=== PATIENT | female | born 1950 | race Caucasian/White ===

== ENCOUNTER → 2018-07-02 12:07 | Outpatient (CLI) | payer MEDICARE, BC, SELFPAY ==
--- NOTE | 2018-07-02 12:14 | BI_ITS ---
MAMMOGRAPHY - BILATERAL SCREENING REASON FOR EXAM: Female, 67 years old. Routine annual screening examination. PERTINENT HISTORY: Non-contributory. TECHNIQUE: Digital bilateral breast billie (3D mammographic acquisition) in the CC and MLO projections. 2-D mediolateral oblique (MLO) and craniocaudad (CC) views of both breasts were obtained. CAD: Full Field Digital Mammography with Computer Added Detection was performed. COMPARISON: Comparison is made with prior study dated May 06, 2016 and May 07, 2017. FINDINGS: Breast Composition: The breasts are almost entirely fatty. There are no dominant masses or suspicious calcifications. Stable 6 mm nodule in the deep mid outer aspect of the left breast. Stable 8.6 mm nodule in the upper lateral aspect of the right breast. These most likely represent small lymph nodes. No other significant abnormalities are identified. There has been no significant change since the prior study. BI/SCREENING MAMM (CAD), BILAT IMPRESSION: Stable bilateral screening mammogram. Yearly follow-up mammogram recommended. (A) ASSESSMENT CATEGORY: BIRADS Category 2: Benign. A letter regarding these results will be sent to the patient by the facility within 30 days. Approximately 10% of breast cancers are not detected by mammography. A normal mammogram should not delay biopsy of a clinically suspicious abnormality. [id number] Electronically Signed: Bartolo Palomo MD at 8:25 EST Tel [phone], Service support ,
== END ==
PROVIDERS: Family Provider Nurse Practitioner; PCP Nurse Practitioner; Visit Provider Nurse Practitioner
DX: Z12.31 Encounter for screening mammogram for malignant neoplasm of breast (principal)
CPT/HCPCS: 77063; 77067

== ENCOUNTER → 2019-05-04 09:45 | Outpatient (CLI) | payer MEDICARE, BC, SELFPAY ==
--- NOTE | 2019-05-04 09:48 | RAD_ITS ---
STUDY: X-RAY CHEST REASON FOR EXAM: Female, 68 years old. SOB and dyspnea TECHNIQUE: Frontal and lateral views of the chest. COMPARISON: 09/05/2016 FINDINGS: The lungs are clear and expanded. There is no demonstrated pleural abnormality. Normal size heart. Normal mediastinum and jackie. Normal visualized pulmonary arteries. Normal visualized aortic arch and descending thoracic aorta. Normal visualized thoracic spine. Normal visualized ribs, clavicles, and shoulders. There is no demonstrated abnormality of the visualized soft tissue structures of the upper abdomen. RAD/Chest PA and Lateral IMPRESSION: Normal x-ray examination of the chest. Electronically Signed: Rasheed Guy MD at 16:58 EST Tel , Service support ,
[2019-05-04 10:43] LABS: CPK Total, Creatine Kinase 65 U/L (26-192)
[2019-05-04 10:56] LABS: D-Dimer Quantitative (DVT/PE) 0.98 FEU/ug/m (0.27-0.49)
[2019-05-05 11:35] LABS: Myoglobin, Serum 48 ng/mL (25-58)
== END ==
PROVIDERS: Family Provider Nurse Practitioner; PCP Nurse Practitioner; Referring Provider Nurse Practitioner; Visit Provider Nurse Practitioner
DX: R07.89 Other chest pain (principal); R06.02 Shortness of breath
CPT/HCPCS: 71046; 82550; 83874; 84484; 85379

== ENCOUNTER → 2019-05-04 12:00 | Outpatient (CLI) | payer MEDICARE, BC, SELFPAY ==
--- NOTE | 2019-05-04 12:24 | CT_ITS ---
STUDY: CTA CHEST REASON FOR EXAM: Female, 68 years old. Elevated d-dimer. Shortness of breath and chest pressure. RADIATION DOSAGE (If Supplied By Facility): CTDIvol = ( 12.57 ) mGy, DLP = ( 543.04 ) mGycm TECHNIQUE: The examination was performed with the intravenous administration of IV 75mL Isovue-370 75. Post-processing of the angiographic images was performed, with multiplanar reformation and 3D reconstruction. Individualized dose optimization techniques were used for this CT. COMPARISON: Comparison is made with prior study dated July 26, 2015. FINDINGS: Normal enhancement of the main pulmonary artery and right and left pulmonary arteries. Normal enhancement of the bilateral peripheral pulmonary arteries. There is no demonstrated pulmonary embolism. Normal thoracic aorta and visualized great vessels. There is no demonstrated aortic dissection. Normal heart and pericardium. Normal mediastinum. Normal hilar regions. Normal visualized trachea and bronchi. The lungs are well expanded. Normal pulmonary parenchyma. Normal pleura. Normal chest wall structures. There are degenerative changes of thoracic spine. Multiple cysts seen in the upper aspect of the left kidney. Small hiatal hernia. CT/CTA Chest W/WO Contrast IMPRESSION: Normal CTA chest examination, without a demonstrated pulmonary embolism or arterial dissection. Electronically Signed: Bartolo Palomo, at 13:22 EST , Service support ,
[2019-05-04 13:20] LABS: CREATININE FINGERSTICK 0.9 mg/dL (0.55-1.02)
== END ==
PROVIDERS: Family Provider Nurse Practitioner; PCP Nurse Practitioner; Referring Provider Nurse Practitioner; Visit Provider Nurse Practitioner
DX: R79.89 Other specified abnormal findings of blood chemistry (principal); R07.89 Other chest pain; R06.02 Shortness of breath
CPT/HCPCS: 71046; 71275; 82550; 83874; 84484; 85379; Q9967

== ENCOUNTER → 2019-05-11 09:00 | Outpatient (CLI) | payer MEDICARE, BC, SELFPAY ==
--- NOTE | 2019-05-11 09:04 | BD_ITS ---
STUDY: DUAL ENERGY X-RAY ABSORPTIOMETRY / DXA REASON FOR EXAM: Female, 68 years old. The patient is postmenopausal. Loss of height. TECHNIQUE: Bone Mineral Density (BMD) measurements of lumbar spine and bilateral hips were obtained. COMPARISON: Comparison is made with prior examination dated May 07, 2017. FINDINGS: Lumbar Spine (L1-L4): g/cm2 (1.460) / T-score (2.2) / Z-score (3.8) Findings are suggestive of normal bone density with a low fracture risk. Left Femur Total: g/cm2 (0.894) / T-score (-0.9) / Z-score (0.6) Left Femoral Neck: g/cm2 (0.790) / T-score (-1.8) / Z-score (-0.1) Right Femur Total: g/cm2 (0.850) / T-score (-1.2) / Z-score (0.3) Right Femoral Neck: g/cm2 (0.810) / T-score (-1.6) / Z-score (0.1) The T-Scores on the most recent prior examination were: Lumbar Spine (L1-L4): There has been improvement of bone density since the previous examination. Left Femur Total: which represents an improvement of 4.6%. Right Femur Total: which represents a worsening of 0.5%. BD/Dexa Bone Density Study IMPRESSION: The patient is considered osteopenic as outlined below according to World Mario Organization (WHO) criteria with a moderate fracture risk. There has been improvement of bone density since the previous examination. Reference Information: The T-score is the number of standard deviations above or below the standard which is normal for young adults at their peak bone mineral density. The World Health Organization (WHO) interprets the T-scores as follows: Above -1 Normal bone density Between -1 and -2.5 Osteopenia Equal to / or below -2.5 Osteoporosis As a practical clinical guideline, osteopenia may be graded as follows: Mild -1 through -1.5 Moderate -1.6 through -2.0 Severe -2.1 through -2.4 The Z-score is the number of standard deviations above or below age-matched controls. A Z-score of less than -1.5 would be considered abnormal. References: 1. NIH Osteoporosis and Related Bone Diseases http://www.osteo.org 2. International Society for Clinical Densitometry http://www.iscd.org 3. National Osteoporosis Foundation http://www.nof.org Electronically Signed: Bartolo Palomo, at 15:44 EST , Service support ,
== END ==
PROVIDERS: Family Provider Nurse Practitioner; PCP Nurse Practitioner; Referring Provider Nurse Practitioner; Visit Provider Nurse Practitioner
DX: Z78.0 Asymptomatic menopausal state (principal); M85.80 Other specified disorders of bone density and structure, unspecified site
CPT/HCPCS: 77080

== ENCOUNTER → 2019-08-01 11:55 | Outpatient (CLI) | payer MEDICARE, BC, SELFPAY ==
--- NOTE | 2019-08-01 12:03 | BI_ITS ---
MAMMOGRAPHY - BILATERAL SCREENING REASON FOR EXAM: Female, 69 years old. Routine annual screening examination. PERTINENT HISTORY: Non-contributory. TECHNIQUE: Digital bilateral breast erica (3D mammographic acquisition) in the CC and MLO projections. 2-D mediolateral oblique (MLO) and craniocaudad (CC) views of both breasts were obtained. CAD: Full Field Digital Mammography with Computer Added Detection was performed. COMPARISON: Comparison is made with prior study dated July 02, 2018 and May 07, 2017. FINDINGS: Breast Composition: There are scattered areas of fibroglandular density. There are no dominant masses or suspicious calcifications. Stable 6 mm nodular density in the deep lateral aspect of the left breast. This has a the appearance of a small lymph node. A similar appearing 8.6 mm nodule in the upper lateral aspect of the right breast is seen as well. No other significant abnormalities are identified. There has been no significant change since the prior study. BI/SCREEN MAMM (CAD) W/ERICA BILAT IMPRESSION: Stable bilateral screening mammogram. Yearly follow-up mammogram recommended. (A) ASSESSMENT CATEGORY: BIRADS Category 2: Benign. A letter regarding these results will be sent to the patient by the facility within 30 days. Approximately 10% of breast cancers are not detected by mammography. A normal mammogram should not delay biopsy of a clinically suspicious abnormality. [id number] Electronically Signed: Bartolo Palomo, at 13:44 EST , Service support ,
== END ==
PROVIDERS: Family Provider Nurse Practitioner; PCP Nurse Practitioner; Referring Provider Nurse Practitioner; Visit Provider Nurse Practitioner
DX: Z12.31 Encounter for screening mammogram for malignant neoplasm of breast (principal)
CPT/HCPCS: 77063; 77067

== ENCOUNTER → 2020-03-14 06:15 | Outpatient (CLI) | payer MEDICARE, BC, SELFPAY ==
--- NOTE | 2020-03-14 06:18 | ECHOD_ITS ---
Reason For Study: SOB Procedure This was a 2D Doppler, Color Flow transthoracic echocardiogram. The exam was of adequate technical quality. Exam performed in department. Left Ventricle Normal LV size. Left ventricular systolic function is normal. The estimated ejection fraction is 65 %. Diastolic function is indeterminate. No regional wall motion abnormalities noted. Right Ventricle Normal RV size. Normal systolic function. Atria The left atrium is mildly enlarged. Normal right atrium. No doppler evidence for ASD. Mitral Valve There is mild mitral annular calcification. Mild diffuse mitral valve thickening. Trivial mitral valve insufficiency. Tricuspid Valve Normal tricuspid valve. Trivial tricuspid valve insufficiency. Right ventricular systolic pressure estimated to be 36 mmHg. Aortic Valve Trisinus/trileaflet aortic valve. Normal aortic valve. Pulmonic Valve The pulmonic valve is not well visualized. Great Vessels Normal sized aortic root. Pericardium/Pleural No pericardial effusion. MMode/2D Measurements & Calculations LVIDd: 4.6 cm IVSd: 1.0 cm Ao root diam: 3.3 cm LVIDs: 3.0 cm LVPWd: 0.98 cm RVDd: 3.4 cm FS: 35.0 % LAV(MOD-bp): 54.2 ml LVAd ap4: 30.8 cm2 SV(MOD-sp4): 63.2 ml LAV(MOD-bp) Indexed: 26.2 ml/m2 EDV(MOD-sp4): 98.1 ml LAV(MOD-sp2): 51.5 ml EDV(sp4-el): 101.2 ml LAV(MOD-sp4): 56.6 ml LVAs ap4: 16.7 cm2 ESV(MOD-sp4): 34.9 ml ESV(sp4-el): 35.3 ml EF(MOD-sp4): 64.4 % EF(sp4-el): 65.1 % SV(sp4-el): 65.9 ml LA A4 area: 18.9 cm2 LA dimension(2D): 4.0 cm RA A4 area: 14.2 cm2 Doppler Measurements & Calculations MV E max pako: 68.6 cm/sec Lat Peak E' Pako: 11.0 cm/sec Med Peak E' Pako: 6.1 cm/sec MV A max pako: 78.8 cm/sec E/E' lat: 6.2 E/E' med: 11.2 MV E/A: 0.87 Ao V2 max: 133.2 cm/sec LV V1 max: 105.1 cm/sec PA V2 max: 105.7 cm/sec Ao max P.1 mmHg LV V1 max P.4 mmHg TR max pako: 288.2 cm/sec TR max P.2 mmHg Interpretation Summary Left ventricular systolic function is normal. The estimated ejection fraction is 65 %. The left atrium is mildly enlarged. There is mild mitral annular calcification. Mild diffuse mitral valve thickening. Trivial mitral valve insufficiency. Trivial tricuspid valve insufficiency. Right ventricular systolic pressure estimated to be 36 mmHg. Diastolic function is indeterminate. Ordering Physician: Neris Tian Referring Physician: Neris Tian Performed By: Yomaira Garcia RDCS
--- NOTE | 2020-03-14 07:51 | STRESSREP ---
Stress Test Report Date: 03-14-2020 Procedure: Pharmacologic stress nuclear imaging study Indications: Shortness of breath/dyspnea on exertion Consent: Per the patient Procedure: The patient underwent pharmacologic (Regadenoson) evaluation with a peak heart rate of 79 beats per minute (53%predicted maximal heart rate) and a peak blood pressure of 126/74 mmHg. The baseline ECG demonstrated normal sinus rhythm. The peak pharmacologic ECG demonstrated no obvious ECG changes. There were no cardiac dysrhythmias pretest, during pharmacologic infusion, or recovery. There was no complaint of chest discomfort during pharmacologic infusion or recovery. The examination was discontinued secondary to completion of protocol. Impression: 1. Pharmacologic (Regadenoson) evaluation 2. Peak pharmacologic ECG with no obvious ECG changes. 3. There were no cardiac dysrhythmias pretest, during pharmacologic infusion, or recovery. 4. Nuclear images pending Myocardial perfusion imaging study: Technique: The patient was injected with 14.7 millicuries of technetium 99m Cardiolite and subsequently rest SPECT Cardiolite nuclear imaging was obtained in the horizontal long, vertical long, and short axis views. The patient underwent pharmacologic (Regadenoson) evaluation with a peak heart rate of 79 beats per minute (53% percent predicted maximal heart rate) and a peak blood pressure of 126/74 mmHg. The patient was injected with 44.8 millicuries of technetium 99m Cardiolite and subsequently stress SPECT Cardiolite nuclear imaging was obtained in the horizontal long, vertical long, and short axis views. A gated Cardiolite study at peak stress was obtained. Interpretation: Rest and stress SPECT Cardiolite nuclear imaging status post realignment, normalization, and attenuation correction demonstrate relative uniform tracer uptake and myocardial perfusion appearing within normal limits. There is end systolic thickening and brightening. The gated Cardiolite study demonstrates myocardial thickening and inward wall motion. The reported LVEF is 67 %. Impression: 1. Rest and stress SPECT Cardiolite nuclear imaging demonstrate relative uniform tracer uptake and myocardial perfusion appearing within normal limits. 2. The gated Cardiolite study reports an LVEF of 67 %. This note was generated with [employer] software. It may contain incorrect words, spelling, and punctuation that were not noted in checking the note before signing.
== END ==
PROVIDERS: PCP Nurse Practitioner; Referring Provider Nurse Practitioner; Visit Provider Nurse Practitioner
DX: R06.02 Shortness of breath (principal)
CPT/HCPCS: 78452; 93017; 93306; A9500; A4216; J2785

== ENCOUNTER → 2020-08-06 10:51 | Outpatient (CLI) | payer MEDICARE, BC, SELFPAY ==
--- NOTE | 2020-08-06 10:54 | BI_ITS ---
MAMMOGRAPHY - BILATERAL SCREENING REASON FOR EXAM: Female, 70 years old. Routine annual screening examination. PERTINENT HISTORY: Non-contributory. TECHNIQUE: Digital bilateral breast erica (3D mammographic acquisition) in the CC and MLO projections. 2-D mediolateral oblique (MLO) and craniocaudad (CC) views of both breasts were obtained. CAD: Full Field Digital Mammography with Computer Added Detection was performed. COMPARISON: Comparison is made with prior study dated 08/01/2019 and 07/02/2018. FINDINGS: Breast Composition: There are scattered areas of fibroglandular density. There are no dominant masses or suspicious calcifications. Stable 6 mm well-defined nodule in the deep lateral aspect of the left breast. Stable 8.6 mm well-defined nodule in the upper lateral aspect of the right breast. These most likely represent small lymph nodes. No other significant abnormalities are identified. There has been no significant change since the prior study. BI/SCRN MAMM (CAD)W/ERICA BILAT IMPRESSION: Stable bilateral screening mammogram. Yearly follow-up mammogram recommended. (A) ASSESSMENT CATEGORY: BIRADS Category 2: Benign. A letter regarding these results will be sent to the patient by the facility within 30 days. Approximately 10% of breast cancers are not detected by mammography. A normal mammogram should not delay biopsy of a clinically suspicious abnormality. [id number] Electronically Signed: Bartolo Palomo MD at 12:01 EST , Service support ,
== END ==
PROVIDERS: PCP Nurse Practitioner; Referring Provider Nurse Practitioner; Visit Provider Nurse Practitioner
DX: Z12.31 Encounter for screening mammogram for malignant neoplasm of breast (principal)
CPT/HCPCS: 77063; 77067

== ENCOUNTER 2021-08-07 10:18 | Outpatient (CLI) | payer MEDICARE, BC, SELFPAY ==
--- NOTE | 2021-08-07 10:22 | BI_ITS ---
MAMMOGRAPHY - BILATERAL SCREENING REASON FOR EXAM: Female, 71 years old. Routine annual screening examination. PERTINENT HISTORY: Non-contributory. TECHNIQUE: Digital bilateral breast erica (3D mammographic acquisition) in the CC and MLO projections. 2-D mediolateral oblique (MLO) and craniocaudad (CC) views of both breasts were obtained. CAD: Full Field Digital Mammography with Computer Added Detection was performed. COMPARISON: Comparison is made with prior study dated 08/06/2020 and 08/01/2019. FINDINGS: Breast Composition: The breasts are almost entirely fatty. There are no dominant masses or suspicious calcifications. Stable 6 mm well-defined nodule in the deep lateral aspect of the left breast. Stable 8.6 mm well-defined nodule in the upper lateral aspect of the right breast. These most likely represent small lymph nodes. Prior sonogram demonstrated these to be small benign appearing lymph nodes. No other significant abnormalities are identified. There has been no significant change since the prior study. BI/SCRN MAMM (CAD)W/ERICA BILAT IMPRESSION: Stable bilateral screening mammogram. Yearly follow-up mammogram recommended. (A) ASSESSMENT CATEGORY: BIRADS Category 2: Benign. A letter regarding these results will be sent to the patient by the facility within 30 days. Approximately 10% of breast cancers are not detected by mammography. A normal mammogram should not delay biopsy of a clinically suspicious abnormality. [id number] Electronically Signed: Bartolo Palomo MD at 11:03 EST ,
== END 2021-08-07 23:59 | disposition home or self-care (01) ==
LOC: OPBI 10:19
PROVIDERS: PCP Nurse Practitioner; Referring Provider Nurse Practitioner; Visit Provider Nurse Practitioner
DX: Z12.31 Encounter for screening mammogram for malignant neoplasm of breast (principal)
CPT/HCPCS: 77063; 77067

== ENCOUNTER → 2022-08-06 | Outpatient (CLI) | payer MEDICARE, BC, SELFPAY ==
--- NOTE | 2022-08-06 12:11 | CT_ITS ---
STUDY: CT BRAIN WITH AND WITHOUT CONTRAST REASON FOR EXAM: Female, 72 years old. Having dizziness along with headache, NEED TO BE STAT -- having dizziness along with headache, NEED TO BE STAT RADIATION DOSAGE (If Supplied By Facility): CTDIvol = ( 44.99 ) mGy, DLP = ( 1614.72 ) mGycm TECHNIQUE: Transaxial CT imaging of the brain was performed pre and post contrast administration. The examination was performed with intravenous administration of IV 50mL Isovue-370. Individualized dose optimization techniques were used for this CT. COMPARISON: None. FINDINGS: Normal soft tissue structures. Normal calvarium. There is mild cerebral atrophy with widening of the extra-axial spaces and ventricular dilatation. Normal white matter tracts of the cerebral hemispheres. Normal basal ganglia and thalami. Normal brainstem. Normal cerebellum. There is no intracranial hemorrhage. There are no findings of an acute ischemic infarction. There is evidence of pansinusitis. Increased soft tissue density in the left nasal fossa suggestive of nasal polyposis. CT/Brain/Head W/WO Contrast IMPRESSION: Pansinusitis with prominence of the soft tissues in the left nasal fossa suggestive of a polyposis. Electronically Signed: Bartolo Palomo MD at 12:56 EST ,
[2022-08-06 17:10] LABS: CREATININE FINGERSTICK < 0.9 mg/dL (0.55-1.02); EGFR FINGERSTICK > 60.0000 mL/min (>60)
== END | disposition home or self-care (01) ==
LOC: CT 12:09
PROVIDERS: PCP Nurse Practitioner; Visit Provider Internal Medicine
DX: R42 Dizziness and giddiness (principal)
CPT/HCPCS: 70470; Q9967

== ENCOUNTER → 2022-08-28 | Outpatient (CLI) | payer MEDICARE, BC, SELFPAY ==
--- NOTE | 2022-08-28 13:00 | BI_ITS ---
MAMMOGRAPHY - BILATERAL SCREENING REASON FOR EXAM: Female, 72 years old. Routine annual screening examination. PERTINENT HISTORY: Non-contributory. TECHNIQUE: Digital bilateral breast billie (3D mammographic acquisition) in the CC and MLO projections. 2-D mediolateral oblique (MLO) and craniocaudad (CC) views of both breasts were obtained. CAD: Full Field Digital Mammography with Computer Added Detection was performed. COMPARISON: Comparison is made with prior study of August 07, 2021 and 08/06/2020. FINDINGS: Breast Composition: The breasts are almost entirely fatty. There are no dominant masses or suspicious calcifications. Stable 6 mm well-defined nodule in the lateral aspect of the left breast. Stable 8.6 mm well-defined nodule in the upper lateral aspect of the right breast. These have a fatty hilum and is suggestive of bilateral benign-appearing lymph nodes. No other significant abnormalities are identified. There has been no significant change since the prior study. BI/SCREENING MAMM (CAD), BILAT IMPRESSION: Stable bilateral screening mammogram. Yearly follow-up mammogram recommended. (A) ASSESSMENT CATEGORY: BIRADS Category 2: Benign. A letter regarding these results will be sent to the patient by the facility within 30 days. Approximately 10% of breast cancers are not detected by mammography. A normal mammogram should not delay biopsy of a clinically suspicious abnormality. [id number] Electronically Signed: Bartolo Palomo MD at 13:54 EST ,
--- NOTE | 2022-08-28 13:26 | BD_ITS ---
STUDY: DUAL ENERGY X-RAY ABSORPTIOMETRY / DXA REASON FOR EXAM: Female, 72 years old. M85.89 TECHNIQUE: Bone Mineral Density (BMD) measurements of lumbar spine and bilateral hips were obtained. COMPARISON: Comparison is made with prior study May 11, 2019. FINDINGS: Lumbar Spine (L1-L4): g/cm2 (1.339) / T-score (2.6) / Z-score (5.0) Findings are suggestive of normal bone density with a low fracture risk. Left Femur Total: g/cm2 (0.825) / T-score (-1.0) / Z-score (0.8) Left Femoral Neck: g/cm2 (0.653) / T-score (-1.8) / Z-score (0.3) Right Femur Total: g/cm2 (0.880) / T-score (-0.5) / Z-score (1.2) Right Femoral Neck: g/cm2 (0.692) / T-score (-1.4) / Z-score (0.6) The T-Scores on the most recent prior examination were: Lumbar Spine (L1-L4): There has been improvement of bone density since the previous examination. Left Femur Total: which represents a worsening of 0.8%. Right Femur Total: which represents an improvement of 11.6%. BD/Dexa Bone Density Study IMPRESSION: The patient is considered osteopenic as outlined below according to World Mario Organization (WHO) criteria with a moderate fracture risk. There has been improvement of bone density since the previous examination. Reference Information: The T-score is the number of standard deviations above or below the standard which is normal for young adults at their peak bone mineral density. The World Health Organization (WHO) interprets the T-scores as follows: Above -1 Normal bone density Between -1 and -2.5 Osteopenia Equal to / or below -2.5 Osteoporosis As a practical clinical guideline, osteopenia may be graded as follows: Mild -1 through -1.5 Moderate -1.6 through -2.0 Severe -2.1 through -2.4 The Z-score is the number of standard deviations above or below age-matched controls. A Z-score of less than -1.5 would be considered abnormal. References: 1. NIH Osteoporosis and Related Bone Diseases www osteo.org 2. International Society for Clinical Densitometry www iscd.org 3. National Osteoporosis Foundation www nof.org Electronically Signed: Bartolo Palomo MD at 13:39 EST ,
== END | disposition home or self-care (01) ==
LOC: OPBI 12:57
PROVIDERS: PCP Nurse Practitioner; Visit Provider Nurse Practitioner Family
DX: Z12.31 Encounter for screening mammogram for malignant neoplasm of breast (principal); Z78.0 Asymptomatic menopausal state
CPT/HCPCS: 77067; 77080

== ENCOUNTER → 2022-11-06 | Outpatient (CLI) | payer MEDICARE, BC, SELFPAY | END | disposition home or self-care (01) | LOC: PSN 10:49 | PROVIDERS: PCP Nurse Practitioner Family; Referring Provider Nurse Practitioner Family; Visit Provider Nurse Practitioner Family | DX: R00.2 Palpitations (principal) | CPT/HCPCS: 93225; 93226 ==

== ENCOUNTER → 2023-09-04 | Outpatient (CLI) | payer MEDICARE, BC, SELFPAY ==
--- NOTE | 2023-09-04 14:43 | BI_ITS ---
MAMMOGRAPHY - BILATERAL SCREENING REASON FOR EXAM: Female, 73 years old. Routine annual screening examination. PERTINENT HISTORY: Non-contributory. TECHNIQUE: Digital bilateral breast erica (3D mammographic acquisition) in the CC and MLO projections. 2-D mediolateral oblique (MLO) and craniocaudad (CC) views of both breasts were obtained. CAD: Full Field Digital Mammography with Computer Added Detection was performed. COMPARISON: Comparison is made with prior study dated August 28, 2022 and August 07, 2021. FINDINGS: Breast Composition: The breasts are almost entirely fatty. There are no dominant masses or suspicious calcifications. Stable 6 mm well-defined nodule in the lateral aspect of the left breast. Stable 8.6 mm well-defined nodule in the upper outer aspect of the right breast. These most likely represent bilateral intramammary lymph nodes. No other significant abnormalities are identified. There has been no significant change since the prior study. BI/SCRN MAMM (CAD)W/ERICA BILAT IMPRESSION: Stable bilateral screening mammogram. Yearly follow-up mammogram recommended. (A) ASSESSMENT CATEGORY: BIRADS Category 2: Benign. A letter regarding these results will be sent to the patient by the facility within 30 days. Approximately 10% of breast cancers are not detected by mammography. A normal mammogram should not delay biopsy of a clinically suspicious abnormality. [id number] Electronically Signed: Bartolo Palomo MD at 15:27 EDT ,
== END | disposition home or self-care (01) ==
PROVIDERS: PCP Nurse Practitioner Family; Referring Provider Nurse Practitioner Family; Visit Provider Nurse Practitioner Family
DX: Z12.31 Encounter for screening mammogram for malignant neoplasm of breast (principal)
CPT/HCPCS: 77063; 77067

== ENCOUNTER 2024-04-15 14:57 | Outpatient (CLI) | payer MEDICARE, BC, SELFPAY ==
[2024-04-15 15:20] LABS: Anion Gap 9 (5-15); BUN 39 mg/dL (7-18); BUN/Creat Ratio 34.2 RATIO (10-20); Calcium,Total 9.8 mg/dL (8.5-10.1); Chloride 99 mmol/L (98-107); Creatinine, Serum 1.14 mg/dL (0.55-1.02); EST Glomerular Filtration Rate 49 mL/min (>60); Est Glom Filt Rate - Afr Amer 60 mL/min (>60); Glucose 144 mg/dL (74-106); Potassium 3.9 mmol/L (3.5-5.1); Sodium Level 138 mmol/L (136-145)
[2024-04-15 15:33] LABS: BNP,B-Type NATRIURETIC PEPTIDE 68.7 pg/mL (0-100)
== END 2024-04-15 23:59 | disposition home or self-care (01) ==
LOC: LABSPEC 14:59
PROVIDERS: PCP Nurse Practitioner Family; Referring Provider Nurse Practitioner Family; Visit Provider Nurse Practitioner Family
DX: R60.0 Localized edema (principal)
CPT/HCPCS: 80048; 83880

== ENCOUNTER → 2024-09-07 | Outpatient (CLI) | payer MEDICARE, BC, SELFPAY ==
--- NOTE | 2024-09-07 12:34 | BD_ITS ---
PROCEDURE: DEXA BONE DENSITY STUDY REASON FOR EXAM: None provided TECHNIQUE: DEXA scan of the lumbar spine and hips, using a Hologic Horizon W unit. REFERENCE LINKS: ISCD Adult Positions COMPARISON: 08/28/2022 FINDINGS: LUMBAR SPINE: Bone mineral denisty, L1 and L3-L4: 1.289 g/cm???, potentially elevated by hypertrophic bony degenerative changes. T-score: 2.1 LEFT FEMORAL NECK: Bone mineral denisty: 0.624 g/cm??? T-score: -2.0 LEFT TOTAL HIP: Bone mineral denisty: 0.860 g/cm??? T-score: -0.7 RIGHT FEMORAL NECK: Bone mineral denisty: 0.728 g/cm??? T-score: -1.1 RIGHT TOTAL HIP: Bone mineral denisty: 0.882 g/cm??? T-score: -0.5 FRAX*: 10 Year Probability of Fracture: Major Osteoporotic Fracture(1): 16.0% Hip Fracture(2): 4.2% *FRAX is a trademark of the [employer]'s [place] for Metabolic Bone Disease, World Health Organization (WHO) Collaborating [place]. 1-Major Osteoporotic Fracture: Clinical Spine, Forearm, Hip or Shoulder. 2-The 10-year probability of fracture may be lower than reported if the patient has received treatment. BD/Dexa Bone Density Study IMPRESSION: 1. Osteopenia. 2. Since 08/28/2022, there has been a decrease of 3.8% in the bone mineral dens ity of the lumbar spine. 3. Additional description as above. Reading Location: [id number]
--- NOTE | 2024-09-07 13:00 | BI_ITS ---
EXAM: SCRN MAMM (CAD)W/ERICA BILAT DATE: 09/07/2024 CLINICAL HISTORY: F, Age 74 y/o , SCRN MAMM (CAD)W/ERICA BILAT. No family history. History of prior left breast needle biopsy. BREAST CANCER RISK ASSESSMENT: Not assessed. TECHNIQUE: Bilateral screening digital breast tomosynthesis with 2D and 3D images. Computer aided detection. COMPARISON: Prior exam(s) dating back to September 04, 2023.. FINDINGS: Bilateral Breast Mammographic Findings: No significant masses, calcifications or other abnormalities are identified. TISSUE DENSITY: The breast tissue is almost entirely fatty. Stable 6 mm well-defined nodule in the upper lateral aspect of the left breast as well as stable 8.6 mm fat containing nodule in the upper lateral aspect of the right breast. These most likely represent small intramammary lymph nodes. BI/SCRN MAMM (CAD)W/ERICA BILAT IMPRESSION: Right Breast: BIRADS 2 BENIGN FINDING. Left Breast: BIRADS 2 BENIGN FINDING. OVERALL FINAL ASSESSMENT: BIRADS 2 BENIGN FINDING RECOMMENDATION: ROUTINE ANNUAL FOLLOW-UP Bilateral in 1 Year Normal interval followup mammograms are recommended in 12 months. A letter with findings and recommendations will be mailed to the patient. Reading Location: [place] [id number]
== END | disposition home or self-care (01) ==
LOC: OPBD 12:30
PROVIDERS: PCP Nurse Practitioner Family; Referring Provider Nurse Practitioner Family; Visit Provider Nurse Practitioner Family
DX: Z12.31 Encounter for screening mammogram for malignant neoplasm of breast (principal); Z78.0 Asymptomatic menopausal state
CPT/HCPCS: 77063; 77067; 77080

== ENCOUNTER 2024-12-22 05:09 | Emergency (ER) | payer MEDICARE, BC, SELFPAY ==
[2024-12-22 05:09] VITALS: BP 133/72; PULSE 66; RESP 18; TEMP 36.8; O2SAT 99; BMI 47.1
--- NOTE | 2024-12-22 05:17 | EKG12_ITS ---
Test Reason : DYSRHYTHMIA Blood Pressure : */* mmHG Vent. Rate : 66 BPM Atrial Rate : 66 BPM P-R Int : 188 ms QRS Dur : 94 ms QT Int : 408 ms P-R-T Axes : 28 72 86 degrees QTcB Int : 427 ms Normal sinus rhythm with sinus arrhythmia Nonspecific ST and T wave abnormality Abnormal ECG Confirmed by SADI ALLISON, LUIS DANIEL ([id number]), managing editor SHAUN PATEL ([id number]) on 12/26/2024 10:28:38 AM Referred By: Confirmed By: LUIS DANIEL AVITIA MD
[2024-12-22] MEDS: 0.9% Normal Saline (1000mL) 1,000 ML 1000 ML IV (05:29)
--- NOTE | 2024-12-22 05:29 | EX.ED.DYSGE1 ---
HPI History of Present Illness Chief Complaint: General Illness Narrative Narrative: hief complaint and HPI: General Malaise. 74-year-old female with past medical history of DM2, gout, HTN, vertigo presents for evaluation of general malaise. Patient states that she recently developed a gout flare in her right toe. She is currently on high-dose steroids. States she started that on Thursday evening. Patient states yesterday morning she felt nauseous but that this quickly resolved. States that she again developed nausea in the evening. She states she is taking her steroids twice daily. She states this morning she woke up feeling warm, nauseous, and lightheaded. She denies any fever, chills, URI symptoms, cough, chest pain, shortness of breath, abdominal pain, dysuria, hematuria, diarrhea, constipation. Patient states she is concerned that her symptoms are secondary to the steroids. Review of systems: See HPI Medications: As listed on the chart Allergies: As listed on the chart PFSH: Per chart Vital signs: As listed on the chart. Reviewed. Physical exam: Gen: A&O x3, NAD Head: Normocephalic, atraumatic Eyes: No sclera icterus, conjunctiva clear, PERRL ENT: Moist mucous membranes Neck: Trachea midline, No JVD CV: RRR, no murmurs, no peripheral edema Resp: Lungs CTA BL, no w/r/c GI: Abd soft, non-distended, non-tender, no r/r/g Musc: Full ROM, no deformity, right toe with gout tophi Skin: Warm, dry Neuro: Alert, oriented, grossly intact, sensation intact Psych: Cooperative, appropriate mood and affect [facility] Home Medications ?Medication ?Instructions ?Recorded ?Last Taken ?Type amlodipine 10 mg-benazepril 20 mg 1 ea PO DAILY 07/10/15 09/05/16 History capsule gabapentin 300 mg capsule 300 mg PO QHS 07/10/15 09/04/16 History hydrochlorothiazide 25 mg tablet 25 mg PO DAILY 07/10/15 09/05/16 History metformin 850 mg tablet 850 mg PO DAILY 07/10/15 09/05/16 History nadolol 80 mg tablet (Corgard) 120 mg PO DAILY 07/10/15 09/05/16 History calcium carbonate 500 mg PO DAILY 04/01/16 09/05/16 History cholecalciferol (vitamin D3) 25 2,000 unit PO DAILY 04/01/16 09/05/16 History mcg (1,000 unit) tablet (Vitamin D3) aspirin 81 mg chewable tablet 81 mg PO DAILY 09/05/16 09/05/16 History oxycodone-acetaminophen 5 mg-325 1 tab PO Q4H PRN PRN Pain #20 tabs 09/05/16 Unknown Rx mg tablet allopurinol 100 mg tablet 100 mg PO DAILY 12/22/24 Unknown History ondansetron 4 mg disintegrating 4 mg PO Q8H PRN PRN Nausea #10 tabs 12/22/24 Unknown Rx tablet prednisone 20 mg tablet mg PO 12/22/24 Unknown History tirzepatide 5 mg/0.5 mL 5 mg subcut QWEEK 12/22/24 Unknown History subcutaneous pen injector (Mounjaro) Allergy/AdvReac Type Severity Reaction Status Date / Time ciprofloxacin (From Cipro) Allergy KIDNEY Verified 09/05/16 16:53 FAILURE ciprofloxacin HCl (From Allergy KIDNEY Verified 09/05/16 16:53 Cipro) FAILURE meloxicam (From Mobic) Allergy KIDNEY Verified 09/05/16 16:53 FAILURE hydrocodone AdvReac MURO, sick Verified 09/05/16 16:53 to stomach Social History Smoking Status: Never smoker EXAM Physical Exam Const Vital Signs: 12/22/24 05:09 12/22/24 05:09 Temperature 98.2 F Temperature Source Oral Pulse Rate 66 Respiratory Rate 18 Respiratory Effort Normal Non-Labored Respiratory Pattern Normal Blood Pressure 133/72 H Blood Pressure Mean 92 Pulse Ox 99 Oxygen Delivery Method Room Air MDM MDM MDM Narrative Medical decision making narrative: 74-year-old female with past medical history of DM2, gout, HTN, vertigo presents for evaluation of general malaise. Patient states that she recently developed a gout flare in her right toe. She is currently on high-dose steroids. States she has been having intermittent nausea since yesterday morning. This morning woke up with nausea, lightheadedness, feeling warm. See physical exam findings. Vital stable other than mild hypertension. Differential diagnosis includes but is not limited to medication adverse side effect from steroids, electrolyte abnormality, UTI, anemia, arrhythmia, viral illness, suspect less likely ACS or intra-abdominal pathology. NS bolus and Zofran ordered. Laboratory workup ordered including chest x-ray. EKG and chest x-ray reviewed see below. Chest x-ray without pneumonia, effusion, cardiomegaly, pneumothorax. Radiology in agreement. CBC without leukocytosis or anemia. Platelets unremarkable. CMP without electrolyte abnormality or MANUELA. Patient has mild transaminitis with an AST of 55 and an ALT of 79. Patient not endorsing any right upper quadrant abdominal pain. Her abdomen is nontender on physical exam. Previous labs are from 2016 which showed normal enzymes at that time. Unknown if this is chronic. Patient states that she does not know if she has baseline elevated liver enzymes. Lipase unremarkable. Troponin unremarkable. Patient not having any chest pain therefore I do not think delta troponin is needed. UA is negative for UTI. At this point in time, no clear etiology for patient's symptoms although I suspect it may be secondary to her recent steroid use. On reevaluation, patient's nausea has improved. She was updated of all the results and confirmed understanding. Plan is to discharge home. Will prescribe Zofran as needed for nausea. Patient was educated that she needs to follow-up with her primary care physician. She was educated to call the office this morning to assess if she should continue the steroids. She was also told to follow-up for her mild transaminitis. She confirmed understanding. Return precautions explained. Patient stable to discharge home. EKG: Interpreted by me/EM physician: EKG shows sinus arrhythmia. There is multiple artifacts on the EKG causing nonspecific changes. Will repeat EKG in hopes of less artifact. EKG shows sinus arrhythmia. Again with artifact however improved. Diagnostic: Interpreted by me/EM physician: Chest x-ray without pneumonia, effusion, cardiomegaly, pneumothorax. Radiology in agreement. Impression: 1. General Malaise 2. Nausea 3. Possible adverse effect from medication 4. Transaminitis, needs further workup outpatient Lab Data Labs: Laboratory Results - last 24 hr 12/22/24 12/22/24 04:55 05:32 WBC 8.1 RBC 4.57 Hgb 13.8 Hct 41.0 MCV 89.7 MCH 30.2 MCHC 33.7 RDW Std Deviation 42.9 RDW Coeff of Jia 13.2 Plt Count 254 MPV 9.6 Immature Gran % (Auto) 0.500 Neut % (Auto) 76.0 H Lymph % (Auto) 19.2 [place] % (Auto) 4.1 Eos % (Auto) 0.0 Baso % (Auto) 0.2 Absolute Neuts (auto) 6.2 Absolute Lymphs (auto) 1.55 Nucleated RBC % 0 Sodium 136 Potassium 4.1 Chloride 99 Carbon Dioxide 21.9 Anion Gap 15 BUN 26 H Creatinine 0.79 Estim Creat Clear Calc 65.79 Est GFR (MDRD) Non-Af 77 BUN/Creatinine Ratio 32.8 H Glucose 178 H Calcium 10.3 Total Bilirubin 0.33 AST 55 H ALT 79 H Alkaline Phosphatase 96 Troponin T High Sens 8 Total Protein 8.4 Albumin 4.7 Globulin 3.7 Albumin/Globulin Ratio 1.3 Lipase 19 Urine Color Straw Urine Clarity Clear Urine pH 6.0 Ur Specific [place] 1.020 Urine Protein 100 H Urine Glucose (UA) Normal Urine Ketones Negative Urine Occult Blood 10 H Urine Nitrite Negative Urine Bilirubin Negative Urine Urobilinogen Normal Ur Leukocyte Esterase Negative Urine RBC 0 SEEN Urine WBC 0 SEEN Ur Squamous Epith Cells 0-5 SEEN Urine Bacteria 0 SEEN Urine Mucus 0 SEEN Radiography Diagnostic Testing: Clinical Impression(s) from Imaging Studies Chest X-Ray 12/22/24 06:15 IMPRESSION: No acute process is identified in the chest. Reading Location: [facility] Discharge Plan Triage Chief Complaint: General Illness ED Provider: Matthew Henao Dx/Rx/DC Orders Clinical Impression: Nausea Instructions: Self-Care for Vomiting and Diarrhea Prescriptions: New ondansetron 4 mg tablet,disintegrating 4 mg PO Q8H PRN PRN (Reason: Nausea) Qty: 10 0RF No Action nadolol [Corgard] 80 MG tablet 120 mg PO DAILY Patient Comments: high blood pressure metformin 850 MG tablet 850 mg PO DAILY Patient Comments: diabetes gabapentin 300 MG capsule 300 mg PO QHS Patient Comments: nerve pain hydrochlorothiazide 25 MG tablet 25 mg PO DAILY Patient Comments: high blood pressure amlodipine-benazepril 1 EACH capsule 1 ea PO DAILY Patient Comments: high blood pressure calcium carbonate 500 MG tablet,chewable 500 mg PO DAILY Patient Comments: supplement cholecalciferol (vitamin D3) [Vitamin D3] 1,000 UNIT tablet 2,000 unit PO DAILY Patient Comments: supplement aspirin 81 MG tablet,chewable 81 mg PO DAILY oxycodone-acetaminophen 1 TABLET tablet 1 tab PO Q4H PRN PRN (Reason: Pain) Qty: 20 0RF Rx Instructions: causes drowsiness prednisone 20 mg tablet PO allopurinol 100 mg tablet 100 mg PO DAILY Mounjaro 5 mg/0.5 mL pen injector 5 mg subcut QWEEK Primary Care Provider: Mary Lainez Referrals: Cecelia Cotton NP-C [Med Staff - Adv Practice Prof] - 3-5 Days Activity Restrictions/Additional Instructions: At this time, there is no clear reason for your symptoms. It may be secondary to your steroids. Follow-up with your primary care physician. You need to call the office today and inform them that we think the steroids are causing side effects. Ask them if they want you to continue them. Your liver enzymes were elevated here. You need to follow-up with your primary care physician. Print Language: Brazilian Disposition Disposition: Home, Self Care
[2024-12-22 05:35] LABS: Hematocrit 41.0 % (37-47); Hemoglobin 13.8 g/dL (12.0-15.0); Immature Granulocytes Count 0.040 X10^3/uL (0.0-0.0); Mean Corp Hgb Conc 33.7 g/dL (32-36); Mean Corpuscular Volume 89.7 fL (81-99); Mean Platelet Vol. 9.6 fl (6.2-12.0); NRBC Flagged by Analyzer 0 % (0-5); Platelet Count 254 K/mm3 (150-450); RBC Distribution Width CV 13.2 % (11.6-14.6); RBC Distribution Width SD 42.9 fl (35.1-43.9); Red Blood Count 4.57 M/mm3 (4.2-5.4); White Blood Count 8.1 K/mm3 (4.4-11.0)
[2024-12-22 05:38] LABS: Mucous, Urine 0 SEEN /hpf (<or=2+); Red Blood Cells-Urine 0 SEEN /hpf (0-5)
[2024-12-22 05:39] LABS: Color, Urine Straw (Yellow); Glucose, Dipstick Normal (Normal); Ketone-Dipstick Negative (Negative); Leukocyte Esterase-Dipstick Negative /ul (Negative); Nitrite-Dipstick Negative (Negative); Occult Blood-Urine 10 /ul (Negative); Protein-Dipstick 100 mg/dl (Negative); Specific Gravity, Urine 1.020 (1.002-1.030); Urine Bilirubin Dipstick Negative (Negative)
[2024-12-22 06:05] LABS: AST(SGOT) 55 U/L (<=31); Alanine Aminotransfer ALT/SGPT 79 U/L (<=34); Albumin, Serum 4.7 g/dL (3.4-4.8); Alkaline Phosphatase 96 U/L (35-104); Anion Gap 15 (5-15); BUN 26 mg/dL (4-19); BUN/Creat Ratio 32.8 RATIO (10-20); Calcium,Total 10.3 mg/dL (7.6-11.0); Carbon Dioxide 21.9 mmol/L (21.0-32.0); Chloride 99 mmol/L (98-108); Estimated Creatinine Clearance 65.79 ml/min (50-250); Globulin 3.7 g/dL (2.2-4.2); Glucose 178 mg/dL (70-99); Lipase 19 U/L (13-75); Potassium 4.1 mmol/L (3.3-5.1); Troponin T High Sensitivity 8 ng/L (<=14)
--- NOTE | 2024-12-22 06:15 | EKG12_ITS ---
Test Reason : DYSRHYTHMIA Blood Pressure : */* mmHG Vent. Rate : 69 BPM Atrial Rate : 69 BPM P-R Int : 198 ms QRS Dur : 92 ms QT Int : 432 ms P-R-T Axes : 91 73 78 degrees QTcB Int : 462 ms Normal sinus rhythm with sinus arrhythmia Nonspecific ST abnormality Abnormal ECG Confirmed by SADI ALLISON, LUIS DANIEL ([id number]), marketing editor SHAUN PATEL ([id number]) on 12/26/2024 10:25:42 AM Referred By: JANNETH Confirmed By: LUIS DANIEL AVITIA MD
--- NOTE | 2024-12-22 06:15 | RAD_ITS ---
PROCEDURE: CHEST PA AND LATERAL 12/22/2024 REASON FOR EXAM: LIGHTHEADEDNESS TECHNIQUE: CHEST PA AND LATERAL COMPARISON: May 04, 2019 FINDINGS: Heart size and mediastinal configuration are within normal limits. There is no focal infiltrate or consolidation. There is no pneumothorax or effusion. There is no acute bony abnormality. Aortic calcifications are visible. : RAD/Chest PA and Lateral IMPRESSION: No acute process is identified in the chest. Reading Location: [facility]
[2024-12-22 06:26] LABS: Squamous Epithelial Cells - UA 0-5 SEEN /hpf (5-10)
[2024-12-22 07:09] VITALS: BP 138/76; PULSE 62; RESP 13
[2024-12-22 07:38] VITALS: BP 138/76; PULSE 62; RESP 13; TEMP 36.4; O2SAT 95
== END 2024-12-22 07:39 | disposition home or self-care (01) ==
PROVIDERS: Emergency Provider Surgery; PCP Internal Medicine; Visit Provider Surgery
DX: R11.0 Nausea (principal); E11.9 Type 2 diabetes mellitus without complications; R53.81 Other malaise; I10 Essential (primary) hypertension; Z79.899 Other long term (current) drug therapy
CPT/HCPCS: 71046; 80053; 81001; 83690; 84484; 85025; 93005; 96374; 96376; 99285; A4216; J2405